=== PATIENT | male | born 1965 | race Caucasian/White ===

== ENCOUNTER 2018-03-31 22:00 | Emergency (ER) | payer SELFPAY ==
--- NOTE | 2018-03-31 23:07 | ED ---
Psychiatric Complaint - HPI Summary HPI Summary: A 52 y/o male brought in by police presents to the ED s/p possible SI reaching 2 /10 in severity. As per triage, "Patient arrived with [facility] under 941 status. Patient reports dx with pancreatic CA and thoughts of suicide. Denies any specific plan". According to the patient, he has end-stage pancreatic cancer. He stated that he was talking to his roommate about a lot of things such as end- of-life care. His roommate thought it was SI so the police were called. The patient stated that it was supposed to be more conversational. He stated that he saw his family members go through colon cancer, so he has been trying to hide it from his mother ("tough it out"). He is here because he thinks that his roommate (ex-boyfriend) thinks his cancer has metastasized and he was not behaving well, however, he thinks he has been behaving well but sometimes he is unsure. The patient noted that he does not have SI, he stated, "I am going to anyway, why would I kill myself". He does not think he did anything wrong. Patient does have vomiting. He has been dealing with pancreatic cancer for 7 years now. He has undergone treatments with radiation, but no chemotherapy. No other known medical issues. No current medications. FHx of colon cancer. No current care for his cancer. - History Of Current Complaint Chief Complaint: EDMentalHealth Time Seen by Provider: 03/31/18 22:54 Hx Obtained From: Patient Onset/Duration: Sudden Onset Timing: Constant Aggravating Factor(s): Nothing Alleviating Factor(s): Nothing Associated Signs And Symptoms: Positive: Negative Has Suicidal: Denies: Thoughts Has Homicidal: Denies: Thoughts - Allergies/Home Medications Allergies/Adverse Reactions: Allergies Allergy/AdvReac Type Severity Reaction Status Date / Time No Known Allergies Allergy Verified 03/31/18 22:12 Home Medications: Home Medications NK [No Home Medications Reported] 04/01/18 [History Confirmed 04/01/18] PMH/Surg Hx/FS Hx/Imm Hx Endocrine/Hematology History: Denies: Hx Diabetes Cardiovascular History: Denies: Hx Hypertension Infectious Disease History: No Infectious Disease History: Denies: Traveled Outside the [place] in Last 30 Days - Family History Known Family History: Positive: Other - COLON CANCER - Social History Lives: Dormitory/Roommates Alcohol Use: None Substance Use Type: Reports: None Review of Systems Negative: Fever Positive: Vomiting Psychological: Other - NEGATIVE: SI All Other Systems Reviewed And Are Negative: Yes Physical Exam - Summary Physical Exam Summary: Appearance: Well-appearing, Well-nourished, lying in bed comfortable Skin: Warm, dry, no obvious rash Eyes: sclera anicteric, no conjunctival pallor ENT: mucous membranes moist Neck: deferred Respiratory: No signs of respiratory distress Cardiovascular: Appears well perfused, pulses are nml Abdomen: deferred Musculoskeletal: Moving all 4 extremities without obvious discomfort Neurological: Awake and alert, mentation is normal, speech is fluent and appropriate Psychiatric: affect is normal, does not appear anxious or depressed Triage Information Reviewed: Yes Vital Signs On Initial Exam: Initial Vitals Temp Pulse Resp BP Pulse Ox 98.6 F 138 24 172/102 94 03/31/18 22:04 03/31/18 22:04 03/31/18 22:04 03/31/18 22:04 03/31/18 22:04 Vital Signs Reviewed: Yes Diagnostics - Vital Signs Vital Signs Temp Pulse Resp BP Pulse Ox 03/31/18 22:04 98.6 F 138 24 172/102 94 - Laboratory Result Diagrams: 03/31/18 23:33 03/31/18 23:33 Lab Statement: Any lab studies that have been ordered have been reviewed, and results considered in the medical decision making process. Course/Dx - Course Course Of Treatment: A 52 y/o male brought in by police presents to the ED s/p possible SI reaching 2/10 in severity. According to the patient, he has end- stage pancreatic cancer. He stated that he was talking to his roommate about a lot of things such as end-of-life care. His roommate thought it was SI so the police were called. The patient stated that it was supposed to be more conversational. He stated that he saw his family members go through colon cancer , so he has been trying to hide it from his mother ("tough it out"). He is here because he thinks that his roommate (ex-boyfriend) thinks his cancer has metastasized and he was not behaving well, however, he thinks he has been behaving well but sometimes he is unsure. The patient noted that he does not have SI, he stated, "I am going to anyway, why would I kill myself". He does not think he did anything wrong. Patient does have vomiting. Physical exam was unremarkable. No laboratory scans were done. Blood work, urinalysis and toxicology was done. In the ED course, the patient recieved Nicotine. Patient will be signed out to Dr. Malone, pending MHE and disposition, during shift change on 04/01/2018 at 0700. - Differential Dx/Clinical Impression Provider Diagnosis: Alcohol intoxication Discharge - Sign-Out/Discharge Documenting (check all that apply): Sign-Out Patient - IRMA Signing out patient TO: Sherman Malone Receiving patient FROM: Pascual Nieto - Discharge Plan Condition: Stable Disposition: HOME Patient Education Materials: Alcohol Withdrawal (ED), Alcohol Dependence (ED), Alcohol Use Disorder (ED) Referrals: No Primary Care Phys,NOPCP [Primary Care Provider] - - Billing Disposition and Condition Condition: STABLE Disposition: Home - Attestation Statements Document Initiated by Elder: Yes Documenting Scribe: Lucas Garcia Provider For Whom Elder is Documenting (Include Credential): Pascual Nieto MD Scribe Attestation: ILucas, prospered for Pascual Nieto MD on 04/01/18 at 2025. Scribe Documentation Reviewed: Yes Provider Attestation: The documentation as recorded by the Lucas syed accurately reflects the service I personally performed and the decisions made by me, Pascual Nieto MD Status of Scribe Document: Viewed
[2018-03-31] MEDS ORDERED: Nicotine Inhaler* 10 MG AMP INH PRN (23:20)
[2018-03-31 23:46] LABS: ABS Basophils 0 10^3/ul (0-0.2); ABS Eosinophils 0 10^3/ul (0-0.6); ABS Lymphocytes 0.6 10^3/ul (1.0-4.8); ABS Monocytes 0.3 10^3/ul (0-0.8); ABS Neutrophils 6.6 10^3/ul (1.5-7.7); ABS Nucleated RBC 0 10^3/ul; Eosinophil % 0 %; Hematocrit 43 % (42-52); Hemoglobin 14.3 g/dl (14.0-18.0); Lymphocyte % 7.7 %; Mean Corpuscular HGB Conc 34 g/dl (31-36); Mean Corpuscular Hemoglobin 32 pg (27-31); Mean Corpuscular Volume 94 fL (80-94); Mean Platelet Volume 6.2 fL (7.4-10.4); Nucleated Red Blood Cells % 0; Platelet Count 199 10^3/ul (150-450); Red Blood Count 4.51 10^6/ul (4.00-5.40); Red Cell Distribution Width 14 % (10.5-15); White Blood Count 7.6 10^3/ul (3.5-10.8)
[2018-04-01] LABS: Urine Appearance Clear; Urine Blood 2+ (Negative); Urine Color Yellow; Urine Ketones 2+ (Negative); Urine Protein 1+(30 mg/dL) (Negative); Urine Red Blood Cell Absent (Absent); Urine Specific Gravity 1.018 (1.010-1.030); Urine Urobilinogen Negative (Negative); Urine White Blood Cell Trace(0-5/hpf) (Absent)
[2018-04-01 00:05] LABS: EGFR Non-African American 90.9 (>60)
[2018-04-01] MEDS ORDERED: Nicotine Inhaler* 10 MG AMP ONE (01:32)
[2018-04-01] MEDS ORDERED: Mouth Piece, Nicotine* 1 EACH CARTRIDGE INH ONE (02:00)
--- NOTE | 2018-04-01 07:11 | ED ---
Progress - Progress Note Progress Note: This pt was signed out by Dr. Nieto at shift change, pending disposition, awaiting MHE. Pt had a mental health evaluation and his case was reviewed by Dr. Day. Dr. Day cleared the pt for discharge. Therefore, pt will be discharged home with dx of alcohol intoxication. Course/Dx - Diagnoses Provider Diagnoses: Alcohol intoxication Discharge - Sign-Out/Discharge Documenting (check all that apply): Patient Departure - Discharge home, Receiving Sign-Out Receiving patient FROM: Pascual Nieto - Discharge Plan Condition: Stable Disposition: HOME Patient Education Materials: Alcohol Withdrawal (ED), Alcohol Dependence (ED), Alcohol Use Disorder (ED) Referrals: No Primary Care Phys,NOPCP [Primary Care Provider] - - Billing Disposition and Condition Condition: STABLE Disposition: Home - Attestation Statements Document Initiated by Elder: Yes Documenting Scribe: Keira Brooke Provider For Whom Elder is Documenting (Include Credential): Sherman Malone MD Scribe Attestation: Keira Motley scribed for Sherman Malone MD on 04/01/18 at 1133. Scribe Documentation Reviewed: Yes Provider Attestation: The documentation as recorded by the Keira syed accurately reflects the service I personally performed and the decisions made by , Sherman Malone MD Status of Scribe Document: Viewed
[2018-04-01] MEDS ORDERED: hydrOXYzine HCL TAB* 25 MG PO ONE (09:38)
[2018-04-01] MEDS ORDERED: Ondansetron ODT TAB* 4 MG PO ONE (09:38)
[2018-04-01 11:23] VITALS: BP 160/98
== END 2018-04-01 11:22 | disposition home or self-care (01) ==
LOC: ED 22:00
DX: F10.129 Alcohol abuse with intoxication, unspecified (principal); R11.10 Vomiting, unspecified
CPT/HCPCS: 36415; 80053; 80307; 80320; 80329; 81003; 81015; 84443; 85025; 87086; 99284; A9270-GY; G0480